=== PATIENT | male | born 1995 | race Caucasian/White ===

== ENCOUNTER 2019-11-29 12:39 | Emergency (ER) | payer BC, SELFPAY ==
[2019-11-29 12:40] VITALS: BP 127/81; PULSE 104; RESP 18; TEMP 36.8; O2SAT 99; BMI 28.1
--- NOTE | 2019-11-29 12:59 | CT_ITS ---
STUDY: CT ABDOMEN AND PELVIS WITHOUT CONTRAST REASON FOR EXAM: Male, 24 years old. LOW ABD PAIN RADIATION DOSAGE (If Supplied By Facility): CTDIvol = ( 11.01 ) mGy, DLP = ( 599.84 ) mGycm TECHNIQUE: Transaxial images were obtained from the dome of the diaphragm to the symphysis pubis without oral contrast, and without intravenous contrast. Sagittal and coronal images were reconstructed. Individualized dose optimization techniques were used for this CT. COMPARISON: None. FINDINGS: The visualized lung bases are unremarkable. The visualized portions of the heart are within normal limits. Normal liver. Normal gallbladder and extrahepatic biliary system. There is mild splenomegaly. Normal pancreas. Normal bilateral adrenal glands. Normal right kidney. Normal left kidney. Normal visualized stomach. Normal small intestine. Normal colon. The appendix is visualized and appears normal. Small benign appearing lymph nodes are seen in the mesenteric fat in the right lower quadrant suggestive of mesenteric adenitis. Normal abdominal aorta. Normal inferior vena cava. There is borderline retroperitoneal lymphadenopathy with enlarged nodes no greater than 10mm in the short axis diameter. Normal urinary bladder. There is a 2.7 cm x 2 cm x 4.2 cm soft tissue density in the left groin with surrounding increased markings in the subcutaneous fat. This most likely represents an enlarged infected left inguinal lymph node. Clinical correlation is recommended. Normal osseous structures. CT/Abdomen/Pelvis without Cont IMPRESSION: 2.7 cm x 2 cm x 4.2 cm rounded soft tissue density in the left groin with increased markings in the surrounding subcutaneous fat. This has the appearance of an infected or inflammatory inguinal lymph node. Findings suggestive of a small nonappearing retroperitoneal lymph nodes as well as small lymph nodes in the mesenteric fat in the right lower quadrant suggestive of a lymphadenitis. Electronically Signed: Dwain Reyes, at 14:22 EDT , Service support ,
--- NOTE | 2019-11-29 13:01 | ED.VISSUMM ---
- ER Visit Summary Date of Service: 11/29/19 Chief Complaint: Left inguinal pain History of Present Illness: The patient is a 24 M who presents with left inguinal pain that is been getting worse over the past 3 days. Patient describes the pain is sharp and burning. Patient states he thought this started as a urinary tract infection because he was having some dysuria and urethral discharge. Patient states the pain is been getting worse and he noted some swelling in his left inguinal area. Patient states his pain improves with Tylenol. Patient admits to subjective fevers and chills. Patient denies any hematuria. Patient denies any nausea or vomiting. Patient denies any diarrhea or constipation. Physical Examination: Vital signs are stable. Patient is afebrile. Patient is in no acute distress. Oral mucosa is pink and moist. Neck is supple. Trachea is midline. There is no JVD. Heart was regular rate and rhythm. Lungs are clear and equal bilaterally. Abdomen is soft. Bowel sounds are normal. There is no abdominal tenderness. exam showed left inguinal tenderness. There is a tender firm area in the left inguinal canal area. There is no erythema or warmth. There is no fluctuance. There is no testicular tenderness. Test Results: BC and comprehensive metabolic profile were obtained and were within normal limits. CT scan of the abdomen and pelvis shows a soft tissue density in the left groin consistent with an inflammatory inguinal lymph node. This was interpreted by the radiologist and reviewed by myself. Urinalysis was ordered and is pending. GC and Chlamydia cultures were ordered. Emergency Department Course and Treatment: Patient was given IV fluids here. Patient was given Rocephin 250 mg IM and Zithromax 1 g p.o. here. Patient was advised that this may be due to a sexually transmitted disease that could be causing his inguinal lymphadenopathy. Patient was treated for this. Patient was instructed to follow-up with his primary care physician in 3 to 5 days for culture results and recheck. Patient understood and was agreeable with the plan. All questions were answered. Disposition: Discharge home Impression: 1. Sexually transmitted disease 2. Inguinal lymphadenitis This note was generated with [employer],SLation software. It may contain incorrect words, spelling, and punctuation that were not noted in review of the chart prior to signing ED Disposition - Plan for ED Patient: Disposition: Home or Assisted Living Diagnosis: Sexually transmitted disease, Acute inguinal lymphadenitis Instructions: ED STI Male Treated Referrals: Care Physician,No Primary [Primary Care Provider] - Glenroy Salamanca MD [STAFF PHYSICIAN] - 5-7 Days
[2019-11-29] MEDS: 0.9% Normal Saline 1,000 ML 1000 ML IV (13:27)
[2019-11-29 13:29] LABS: ALB/GLOB Ratio 0.8 RATIO (0.9-2.4); AST(SGOT) 15 U/L (15-37); Alanine Aminotransfer ALT/SGPT 34 U/L (16-61); Albumin, Serum 3.6 g/dL (3.2-5.0); Alkaline Phosphatase 121 U/L (45-117); Anion Gap 6 (5-15); BUN 14 mg/dL (7-18); BUN/Creat Ratio 14.2 RATIO (10-20); Calcium,Total 9.4 mg/dL (8.5-10.1); Chloride 105 mmol/L (98-107); Creatinine, Serum 0.98 mg/dL (0.70-1.30); EST Glomerular Filtration Rate 100 mL/min (>60); Est Glom Filt Rate - Afr Amer 122 mL/min (>60); Estimated Creatinine Clearance 114.39 ml/min; Globulin 4.5 g/dL (2.2-4.2); Glucose 94 mg/dL (74-106); Potassium 4.3 mmol/L (3.5-5.1); Protein, Total 8.1 g/dL (6.4-8.2); Sodium Level 138 mmol/L (136-145)
[2019-11-29 13:36] LABS: Basophil# 0.05 X10^3/uL; Basophil% 0.5 % (0-1); Eosinophil# 0.29 X10^3/uL; Eosinophils% 2.6 % (0-5); Hematocrit 39.4 % (40-54); Hemoglobin 13.3 g/dL (13.0-16.5); Lymphocyte % 13.6 % (19-41); Mean Corp Hgb Conc 33.8 g/dL (32-36); Mean Corpuscular Hgb 29.8 pg (27.0-32.0); Mean Corpuscular Volume 88.3 fL (80-94); Mean Platelet Vol. 9.2 fl (6.2-12.0); Monocyte# 1.13 X10^3/uL; Monocyte% 10.2 % (0-10); NRBC Flagged by Analyzer 0 % (0-5); Neutrophil # 8.04 X10^3/uL (2.7-7.7); Neutrophil % 72.6 % (47-70); Platelet Count 277 K/mm3 (150-450); RBC Distribution Width CV 12.3 % (11.6-14.6); RBC Distribution Width SD 39.5 fl (35.1-43.9); Red Blood Count 4.46 M/mm3 (4.6-6.2); White Blood Count 11.1 K/mm3 (4.4-11.0)
[2019-11-29] MEDS: Azithromycin 250 MG Tablet 1000 MG PO (14:47)
[2019-11-29] MEDS: Ceftriaxone 500 MG Vial 250 MG IM (14:50)
[2019-11-29 15:11] LABS: Color, Urine Yellow (Yellow); Glucose, Dipstick Normal (Normal); Ketone-Dipstick 5 mg/dl (Negative); Leukocyte Esterase-Dipstick 500 /ul (Negative); Nitrite-Dipstick Positive (Negative); Occult Blood-Urine 25 /ul (Negative); Protein-Dipstick 30 mg/dl (Negative); Urine Bilirubin Dipstick 1 mg/dL (Negative); Urine Clarity Cloudy (Clear); Urine Urobilinogen 4 mg/dl (Normal); Urine pH 6.5 (5.0 - 8.0)
[2019-11-29 16:40] LABS: Chlamydia Trachomatis by PCR Negative (Negative); Neisserai gonorrhoeae by PCR Positive (Negative); Probe Check PASS
== END 2019-11-29 15:37 | disposition home or self-care (01) ==
PROVIDERS: Emergency Provider Emergency Medicine
DX: I88.9 Nonspecific lymphadenitis, unspecified (principal); A64 Unspecified sexually transmitted disease
CPT/HCPCS: 74176; 80053; 81002; 85025; 87491; 87591; 96360; 96372; 99283; J7030; A4216

== ENCOUNTER 2021-01-14 23:20 | Emergency (ER) | payer BC, SELFPAY ==
[2021-01-14 23:21] VITALS: BP 125/105; PULSE 138; RESP 16; TEMP 37.3; O2SAT 99; BMI 28.0
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
[2021-01-14] MEDS: Lidocaine 1% (20 ml mdv) 20 ML Vial INFILT (23:44)
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
== END 2021-01-15 01:04 | disposition home or self-care (01) ==
PROVIDERS: Emergency Provider Emergency Medicine
DX: S01.01XA Laceration without foreign body of scalp, initial encounter (principal); Z87.891 Personal history of nicotine dependence; V47.5XXA Car driver injured in collision with fixed or stationary object in traffic accident, initial encounter; Y93.I9 Activity, other involving external motion; Y92.410 Unspecified street and highway as the place of occurrence of the external cause; Y99.8 Other external cause status
CPT/HCPCS: 12004; 70450; 99285